=== PATIENT | female | born 1980 | race American Indian/Alaskan Native ===

== ENCOUNTER 2017-08-16 13:07 | Outpatient (CLI) | payer MEDICAID ==
--- NOTE | 2017-08-16 16:51 | Mammography Report ---
BILATERAL DIGITAL SCREENING MAMMOGRAM with CAD: 08/16/17 13:07:00 CLINICAL: Routine screening. COMPARISON:10/22/15 FINDINGS: The breasts are almost entirely fatty.Scattered bilateral predominantly punctate benign calcifications. No mass, architectural distortion or suspicious calcifications. IMPRESSION: No mammographic evidence of malignancy. BI-RADS CATEGORY: 2 - - Benign RECOMMENDATION: Routine mammographic screening in one year. COMMENT: Patient follow-up letters are generated by our [employer] application.
== END 2017-08-16 13:08 | disposition home or self-care (01) ==
LOC: MAMMO 13:07
PROVIDERS: ATTEND Obstetrics & Gynecology
DX: Z12.31 Encounter for screening mammogram for malignant neoplasm of breast (principal)
CPT/HCPCS: 77067